=== PATIENT | female | born 2000 | race Two or more races ===

== ENCOUNTER 2020-08-16 23:10 | Emergency (ER) | payer SELFPAY ==
--- NOTE | 2020-08-16 23:36 | NUR ---
PATIENT LEFT WITHOUT BEING TRIAGED OR SEEN BY [facility].
== END 2020-08-16 23:38 | disposition left against medical advice (07) ==
LOC: ER 23:13
DX: Z75.3 Unavailability and inaccessibility of health-care facilities (principal)